=== PATIENT | female | born 2000 | race Caucasian/White ===

== ENCOUNTER 2023-02-03 15:08 | Outpatient (REF) | payer OTHER, SELFPAY ==
--- NOTE | ~2023-02-03 | MR_ITS ---
EXAMINATION: MR LOWER LEG WITHOUT CONTRAST, RIGHT CLINICAL INFORMATION: Pain and swelling. Fasciotomy in March 2022. Compartment syndrome. COMPARISON: Report from outside MRI dated 01/01/2022. No images available for comparison at the time of interpretation. TECHNIQUE: Multisequence MR imaging of the right lower leg was obtained without contrast on a high-field strength scanner. FINDINGS: Evaluation somewhat limited secondary to patient motion. BONE: Minimally increased T2 signal within the medullary cavity of the distal fibular diametaphysis with normal T1 signal. No significant periosteal edema or reaction. Findings could represent a minimal stress injury in the proper chondral setting. No additional abnormal marrow signal. No tibial stress reaction or fracture. No concerning lytic or blastic osseous lesion. MUSCLES/TENDONS: Intact. No acute muscle or tendon tear. No edema or evidence of ischemia/compartment syndrome. SOFT TISSUES: Focal artifact along the anterolateral aspect of the anterior compartment consistent with prior surgery/fasciotomy. No soft tissue mass or fluid collection. No subcutaneous edema. MR/MR lower leg RT wo con IMPRESSION: 1. Minimally increased T2 signal within the medullary cavity of the distal fibular diametaphysis with normal T1 signal. Findings could represent a minimal stress injury in the proper chondral setting. No additional abnormal marrow signal. 2. No acute muscle or tendon tear. No evidence of ischemia/compartment syndrome. 3. Postsurgical changes along the anterolateral aspect of the anterior compartment. No soft tissue mass, fluid collection, or subcutaneous edema.
== END 2023-02-03 15:09 | disposition home or self-care (01) ==
LOC: HO.MRI 15:08
PROVIDERS: Visit Provider Family Medicine
DX: M79.661 Pain in right lower leg (principal)
CPT/HCPCS: 73718